=== PATIENT | male | born 1950 | race Caucasian/White ===

== ENCOUNTER 2017-05-05 17:41 | Emergency (ER) | payer BC ==
[~2017-05-05] VITALS: Ht 172.7 cm; Wt 79.0 kg
[2017-05-05 17:57] VITALS: BP 122/81
[2017-05-05] MEDS ORDERED: KETOROLAC 30 MG/1 ML ONE (18:42)
[2017-05-05] MEDS ORDERED: KETOROLAC 60 MG/2 ML IM ONE (19:00)
== END 2017-05-05 19:09 | disposition home or self-care (01) ==
LOC: ED 19:03
DX: M54.41 Lumbago with sciatica, right side (principal); M16.0 Bilateral primary osteoarthritis of hip; I10 Essential (primary) hypertension
CPT/HCPCS: 96372; 99283; J1885

== ENCOUNTER 2019-08-15 15:58 | Emergency (ER) | payer MEDICARE ==
[~2019-08-15] VITALS: Ht 172.7 cm; Wt 80.1 kg
[2019-08-15 16:55] LABS: ALBUMIN 3.5 g/dL (3.4-5.0); ANION GAP 6 mmol/L (5-15); CALCIUM 8.8 mg/dL (8.5-10.1); CHLORIDE 106 mmol/L (98-107); CREATININE 1.08 mg/dL (0.7-1.3)
[2019-08-15] MEDS ORDERED: TAMS-11 PO (16:56)
[2019-08-15] MEDS ORDERED: METF1000 PO (16:56)
[2019-08-15] MEDS ORDERED: FENO54TA17 PO (16:56)
[2019-08-15 16:59] LABS: TROPONIN I < 0.015 ng/mL (0.000-0.045)
[2019-08-15 17:07] LABS: BASOPHILS # (AUTO) 0.03 x10^3/uL (0-0.1); BASOPHILS % (AUTO) 0 % (0-1); EOSINOPHILS # (AUTO) 0.04 x10^3/uL (0-0.4); EOSINOPHILS % (AUTO) 1 % (1-7); LYMPHOCYTES # (AUTO) 2.17 x10^3/uL (1-3.4); LYMPHOCYTES % (AUTO) 32 % (22-44); MD NO; MEAN CORPUSCULAR HEMOGLOBIN 21.1 pg (27.5-34.5); MEAN CORPUSCULAR HGB CONC 30.8 g/dL (33.2-36.2); MEAN CORPUSCULAR VOLUME 68.3 fL (81-97); MEAN PLATELET VOLUME 9.3 fL (7.4-10.4); MONOCYTES # (AUTO) 0.38 x10^3/uL (0.2-0.8); MONOCYTES % (AUTO) 6 % (2-9); NEUTROPHILS # (AUTO) 4.11 x10^3/uL (1.8-6.8); NEUTROPHILS % (AUTO) 61 % (42-75); PLATELET COUNT 193 x10^3/uL (130-400); RED BLOOD COUNT 6.61 x10^6/uL (4.38-5.82); RED CELL DISTRIBUTION WIDTH 15.6 % (9.4-14.8)
[2019-08-15 17:16] VITALS: BP 122/76
--- NOTE | 2019-08-15 17:52 | NUR ---
TASK RN: Patient/Caregiver given discharge instructions and they have confirmed that they understand the instructions. Patient ambulatory with steady gait.
== END 2019-08-15 17:53 | disposition home or self-care (01) ==
LOC: ED 17:51
DX: R42 Dizziness and giddiness (principal); I10 Essential (primary) hypertension
CPT/HCPCS: 36415; 80048; 82040; 84484; 85025; 93005; 99284